=== PATIENT | male | born 1980 | race Caucasian/White ===

== ENCOUNTER 2016-12-27 18:19 | Emergency (ER) | payer OTHER ==
[2016-12-27 18:32] VITALS: BP 128/79
[2016-12-27] MEDS ORDERED: Sodium Chloride 0.9% 10 ML Syringe FLUSH PRN (19:47)
[2016-12-27] MEDS ORDERED: Ondansetron 4 MG/2 ML SDV IVPUSH ONE (19:47)
[2016-12-27] MEDS ORDERED: Lactated Ringers 1,000 ML IV ONE ×2 (19:50→22:09)
--- NOTE | 2016-12-27 20:52 | EDM.PDOC ---
ED HPI GI/ABDOMINAL - General Chief Complaint: Gastrointestinal Problem Stated Complaint: VOMITING Time Seen by Provider: 12/27/16 19:52 Source of Information: Reports: Patient History Limitations: Reports: No limitations - History of Present Illness INITIAL COMMENTS - FREE TEXT/NARRATIVE: Patient presents for evaluation and treatment of abdominal discomfort and vomiting. Patient reports that his symptoms began yesterday around noon. He reports that the abdominal discomfort is in the epigastric and right upper quadrant. He states that it comes and goes. States he is having difficulty eating or drinking anything as it comes right back up. He is unsure how many episodes of vomiting he has had. He also reports associated symptoms of nausea and weakness. He denies any fevers, chills, diarrhea, melena, hematochezia or any constipation. He reports that his last bowel movement was today. He has not taken any medications prior to arrival in the ER. Patient denies any recent travel. Past surgical history includes an appendectomy. He states that he had an ultrasound and a HIDA scan about 2 years ago and is gallbladder looked okay at that time. Location: [facility] - Related Data Allergies/ADRs: Allergies Allergy/AdvReac Type Severity Reaction Status Date / Time No Known Allergies Allergy Verified 12/27/16 18:27 Home Meds: Home Meds . [No Known Home Meds] 12/27/16 [History] Past Medical History - Past Health History Medical/Surgical History: Denies Medical/Surgical History Other Respiratory History: HX OF RIGHT LUNG PLEURACY Other Musculoskeletal History: BILATERAL CARPAL TUNNEL SYNDROME Other Neuro History: HERNIATED DISC, NO SURGERY - Past Surgical History Other HEENT Surgeries/Procedures: WISDOM TEETH REMOVED Other Musculoskeletal Surgeries/Procedures:: LEFT CTR SURGERY Social & Family History - Tobacco Use Smoking Status *Q: Never Smoker Second Hand Smoke Exposure: No - Alcohol Use Days Per Week of Alcohol Use: 0 Number of Drinks Per Day: 0 Total Drinks Per Week: 0 - Recreational Drug Use Recreational Drug Use: No Drug Use in Last 12 Months: No ED ROS GENERAL - Review of Systems Review Of Systems: See Below Constitutional: Reports: weakness, decreased appetite. Denies: fever, chills GI/Abdominal: Reports: Abdominal pain (epigastric and RUQ), Nausea, Vomiting. Denies: Bloody stool, Diarrhea, Hematochezia, Melena : Reports: no symptoms ED EXAM, GI/ABD - Physical Exam Exam: See Below Exam Limited By: No limitations General Appearance: alert, WD/WN, no apparent distress Throat/Mouth: Normal inspection, Normal lips, Normal teeth, Normal oropharynx, Normal voice, No airway compromise Neck: normal inspection. No: lymphadenopathy (L), lymphadenopathy (R) Respiratory/Chest: no respiratory distress, lungs clear, normal breath sounds Cardiovascular: normal peripheral pulses, regular rate, rhythm GI/Abdominal: hypoactive bowel sounds, tenderness (epigastric and RUQ). No: guarding, rebound, McBurney's sign, Randall's sign Neurological: alert, oriented, normal cognition Psychiatric: normal affect, normal mood Skin Exam: Warm, Dry Course - Vital Signs Last Recorded V/S: Last Vital Signs Temp 36.3 C 12/27/16 18:27 Pulse 67 12/27/16 18:27 Resp 18 12/27/16 18:27 BP 128/79 12/27/16 18:27 Pulse Ox 97 12/27/16 18:27 Orthostatic Blood Pressure [ 118/85 Standing] - Orders/Labs/Meds Labs: Laboratory Tests 12/27/16 12/27/16 Range/Units 20:10 20:10 WBC 13.78 H (4.23-9.07) K/mm3 RBC 5.68 (4.63-6.08) M/mm3 Hgb 17.0 (13.7-17.5) gm/L Hct 48.1 (40.1-51.0) % MCV 84.7 (79.0-92.2) fl MCH 29.9 (25.7-32.2) pg MCHC 35.3 (32.2-35.5) g/dl RDW Std Deviation 40.3 (35.1-43.9) fL Plt Count 333 (163-337) K/mm3 MPV 9.9 (9.4-12.3) fl Neut % (Auto) 78.5 H (34.0-67.9) % Lymph % (Auto) 10.9 L (21.8-53.1) % [place] % (Auto) 10.3 (5.3-12.2) % Eos % (Auto) 0.1 L (0.8-7.0) Baso % (Auto) 0.2 (0.1-1.2) % Neut # 10.82 H (1.78-5.38) K/mm3 Lymph # 1.50 (1.32-3.57) K/mm3 [place] # 1.42 H (0.30-0.82) K/mm3 Eos # 0.01 L (0.04-0.54) K/mm3 Baso # 0.03 (0.01-0.08) K/mm3 Sodium 140 (136-145) mEq/L Potassium 3.3 L (3.5-5.1) mEq/L Chloride 99 (98-107) mEq/L Carbon Dioxide 30 (21-32) mEq/L Anion Gap 14.3 (5-15) BUN 20 H (7-18) mg/dL Creatinine 1.0 (0.7-1.3) mg/dL Est Cr Clr Drug Dosing 90.54 mL/min Estimated GFR (MDRD) > 60 (>60) mL/min BUN/Creatinine Ratio 20.0 H (14-18) Glucose 115 H (74-106) mg/dL Calcium 9.6 (8.5-10.1) mg/dL Total Bilirubin 1.2 H (0.2-1.0) mg/dL AST 22 (15-37) U/L ALT 34 (16-63) U/L Alkaline Phosphatase 80 (46-116) U/L C-Reactive Protein 1.7 H* (<1.0) mg/dL Total Protein 8.4 H (6.4-8.2) g/dl Albumin 4.5 (3.4-5.0) g/dl Globulin 3.9 gm/dL Albumin/Globulin Ratio 1.2 (1-2) Lipase 186 (73-393) U/L Meds: Medications Discontinued Medications Generic Name Dose Route Start Last Admin Trade Name Freq PRN Reason Stop Dose Admin Lactated Ringer's 1,000 mls @ 999 mls/hr 12/27/16 19:50 12/27/16 20:12 Ringers, Lactated IV 12/27/16 20:50 999 mls/hr .BOLUS ONE Administration Lactated Ringer's 1,000 mls @ 999 mls/hr 12/27/16 22:09 Ringers, Lactated IV 12/27/16 23:09 .BOLUS ONE Ketorolac Tromethamine 30 mg 12/27/16 21:02 12/27/16 21:20 Toradol IVPUSH 12/27/16 21:03 30 mg ONETIME ONE Administration Ondansetron HCl 4 mg 12/27/16 19:47 12/27/16 20:12 Zofran IVPUSH 12/27/16 19:48 4 mg ONETIME ONE Administration Potassium Bicarbonate 10 meq 12/27/16 21:05 12/27/16 21:29 Effer-K PO 12/27/16 21:06 10 meq ONETIME ONE Administration Sodium Chloride 10 ml 12/27/16 19:47 12/27/16 20:14 Saline Flush FLUSH 10 ml ASDIRECTED PRN Administration Keep Vein Open - Radiology Interpretation Free Text/Narrative:: flat and upright of the abdomen xray shows no air-fluid lines, normal gas pattern - Re-Assessments/Exams Free Text/Narrative Re-Assessment/Exam: 12/27/16 22:19 Labs returned. WBC is 13.7, hgb is 17 and plts are 333 sodium is 140, potassiumi s 3.3 and chloride is 99. Anion gap is 14.0 and AST is 22, ALT is 34 and alk phos is 80. T. bili is 1.2 CRP is 1.7 lipase is 186 I reviewed the labs and imaging with the patient. He has received 1 liter LR bolus, 4mgzofran , toradol and potassium. He feels greatly improved at this time. He declined a second fluid bolus. Will discharge home at this time. Discharge instructions as documented. Departure - Departure Time of Disposition: 22:24 Disposition: Home, Self-Care 01 Condition: good Clinical Impression: Gastroenteritis Instructions: Viral Gastroenteritis, Adult, [id number] Referrals: Rosalva Samuel DO [Primary Care Provider] - Forms: ED Department Discharge Additional Instructions: Prescription for Zofran one tab sublingual every 6-8 hours as needed for nausea. Rx zofran 4mg sublingual #10 tabs 1 tab PO every 6-8 hours prn nausea Clear Liquids tonight and tomorrow morning he may advance to a bland diet tomorrow afternoon. Expect to feel ill for the next one to 2 days. If symptoms persist beyond 3 days follow-up with primary care provider. Please Return to the ER should your symptoms change or worsen.
[2016-12-27] MEDS ORDERED: Ketorolac 30 MG/ML SDV IVPUSH ONE (21:02)
[2016-12-27] MEDS ORDERED: Potassium Bicarbonate/Cit Ac 10 MEQ Effervescent Tab PO ONE (21:05)
--- NOTE | 2016-12-28 08:18 | CR ---
Abdomen: Supine and upright views of the abdomen were obtained. Comparison: Previous abdominal x-ray of 06/14/14. Bowel gas pattern appears normal. No abnormal calcifications or soft tissue abnormality is seen. Minimal scoliosis is noted within the spine. No free air is seen. Impression: 1. Unremarkable two-view abdominal x-ray. Diagnostic code #1
== END 2016-12-27 22:40 | disposition home or self-care (01) ==
LOC: JD.ED 18:19
DX: K52.9 Noninfective gastroenteritis and colitis, unspecified (principal)
CPT/HCPCS: 36415; 74020; 80053; 83690; 85025; 86140; 96361; 96374; 96375; 99284; A9270; J1885; J2405; J7050; J7120

== ENCOUNTER → 2017-03-24 | Day surgery (SDC) | payer OTHER ==
[~2017-03-24] MED LIST: Dexamethasone 4 MG/ML SDV ONE; EPINEPHrine 1:1000 1 MG/ML 30 ML MDV ONE; HYDROmorphone 0.5 MG/0.5 ML Syringe IVPUSH PRN; HYDROmorphone 1 MG/ML Syringe ONE; Ketorolac 30 MG/ML SDV ONE; Lactated Ringers 1,000 ML IV SCH; Lactated Ringers 1,000 ML ONE; Lidocaine 1% 4 ML ONE; Lidocaine 1%/Sod Bicarbonate in NS 8.4% 1 ML Syringe IV PRN; Midazolam 1 MG/ML 2 ML SDV ONE; Ondansetron 4 MG/2 ML SDV IVPUSH PRN; Ondansetron 4 MG/2 ML SDV ONE; Phenylephrine/Normal Saline 100 MCG/ML 10 ML Syringe ONE; Propofol 200 MG/20 ML SDV ONE; Rocuronium 50 MG/5 ML Vial ONE; Sodium Chloride 0.9% 10 ML Syringe FLUSH PRN; ceFAZolin 1 GM Vial ONE; ePHEDrine/Normal Saline 25 MG/5 ML Syringe ONE; fentaNYL 100 MCG/2 ML SDV IVPUSH PRN; fentaNYL 250 MCG/5 ML SDV ONE
--- NOTE | 2017-03-24 07:26 | PCM.PREANE ---
Preanesthetic Assessment - Anesthesia/Transfusion/Family Hx Anesthesia History: Prior Anesthesia Without Reaction Family History of Anesthesia Reaction: No Transfusion History: No Prior Transfusion(s) Intubation History: Unknown - Review of Systems Pulmonary: No Symptoms (History of sleep apnea) Gastrointestinal: No symptoms (history of scrotal pain), Constipation - Physical Assessment NPO Status Date: 03/23/17 Height: 1.65 m Weight: 90.718 kg Mental Status: Alert & Oriented x3 - Lab Values: Laboratory Last Values MRSA (PCR) Negative 03/22/17 10:26 12/27/16 Labs: ej=559 k=3.3 (3.5-5.1) cl=99 co2=30 bun=20(7-18) cr=1.0 - Allergies Allergies/Adverse Reactions: Allergies Allergy/AdvReac Type Severity Reaction Status Date / Time No Known Allergies Allergy Verified 03/23/17 15:29 - Anesthesia Plan Pre-Op Medication Ordered: None - Acknowledgements Anesthesia Type Planned: General Anesthesia Pt an Appropriate Candidate for the Planned Anesthesia: Yes Alternatives and Risks of Anesthesia Discussed w Pt/Guardian: Yes Pt/Guardian Understands and Agrees with Anesthesia Plan: Yes PreAnesthesia Questionnaire - Past Health History Medical/Surgical History: Denies Medical/Surgical History HEENT History: Reports: None Cardiovascular History: Reports: None Respiratory History: Reports: Sleep Apnea Other Respiratory History: HX OF RIGHT LUNG PLEURACY Gastrointestinal History: Reports: Chronic Constipation, Other (See Below) Other Gastrointestinal History: Left and Right hernia repair, abdominal pain Genitourinary History: Reports: Other (See Below) Other Genitourinary History: scrotal pain, pelvic floor weakness, vericocele repair 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 Musculoskeletal History: Reports: Other (See Below) Other Musculoskeletal History: L elbow dislocatino, right and left carpal tunnel release, knee pain, low back pain Neurological History: Reports: None Other Neuro History: HERNIATED DISC, NO SURGERY Psychiatric History: Reports: None Endocrine/Metabolic History: Reports: None Hematologic History: Reports: None Immunologic History: Reports: None Oncologic (Cancer) History: Reports: None Dermatologic History: Reports: None - Past Surgical History Head Surgeries/Procedures: Reports: None GI Surgical History: Reports: Appendectomy, Hernia Repair/Other Male Surgical History: Reports: Varicocele Resection, Vasectomy Endocrine Surgical History: Reports: None Neurological Surgical History: Reports: None Oncologic Surgical History: Reports: None Dermatological Surgical History: Reports: None - SUBSTANCE USE Smoking Status *Q: Never Smoker Second Hand Smoke Exposure: No Days Per Week of Alcohol Use: 0 Number of Drinks Per Day: 0 Total Drinks Per Week: 0 Recreational Drug Use History: No - HOME MEDS Home Medications: Home Meds . [No Known Home Meds] 12/27/16 [History] - CURRENT (IN HOUSE) MEDS Current Meds: Current Medications Discontinued Medications Cefazolin Sodium (Ancef) Confirm Administered Dose 2 gm .ROUTE .STK-MED ONE Stop: 03/24/17 06:56 Dexamethasone (Dexamethasone) Confirm Administered Dose 12 mg .ROUTE .STK-MED ONE Stop: 03/24/17 06:56 Fentanyl (Sublimaze) Confirm Administered Dose 250 mcg .ROUTE .STK-MED ONE Stop: 03/24/17 06:57 Hydromorphone HCl (Dilaudid) Confirm Administered Dose 1 mg .ROUTE .STK-MED ONE Stop: 03/24/17 06:56 Lactated Ringer's (Ringers, Lactated) 1,000 mls @ 125 mls/hr IV ASDIRECTED RADHIKA Lidocaine HCl (Xylocaine-Mpf 1%) Confirm Administered Dose 4 mls @ as directed .ROUTE .STK-MED ONE Stop: 03/24/17 06:56 Lactated Ringer's (Ringers, Lactated) Confirm Administered Dose 1,000 mls @ as directed .ROUTE .STK-MED ONE Stop: 03/24/17 06:56 Lidocaine/Sodium Bicarbonate (Buffered Lidocaine 1% In Ns 8.4%) 0.25 ml IV ONETIME PRN PRN Reason: Prior to IV Start Midazolam HCl (Versed 1 Mg/Ml) Confirm Administered Dose 2 mg .ROUTE .STK-MED ONE Stop: 03/24/17 06:56 Ondansetron HCl (Zofran) Confirm Administered Dose 4 mg .ROUTE .STK-MED ONE Stop: 03/24/17 06:56 Propofol (Diprivan 20 Ml) Confirm Administered Dose 400 mg .ROUTE .STK-MED ONE Stop: 03/24/17 06:56 Rocuronium [place] (Zemuron) Confirm Administered Dose 50 mg .ROUTE .STK-MED ONE Stop: 03/24/17 06:56 Sodium Chloride (Saline Flush) 10 ml FLUSH ASDIRECTED PRN PRN Reason: Keep Vein Open
--- NOTE | 2017-03-24 08:44 | PCM.PREANE ---
Preanesthetic Assessment - Procedure Proposed Procedure: Left KVA - Anesthesia/Transfusion/Family Hx Anesthesia History: Prior Anesthesia Without Reaction Family History of Anesthesia Reaction: No Transfusion History: No Prior Transfusion(s) Intubation History: Unknown - Review of Systems General: No Symptoms Pulmonary: Other (ROMEO with cpap) Cardiovascular: No Symptoms Gastrointestinal: No symptoms Neurological: No Symptoms Other: Reports: Depression (not medicated ) - Physical Assessment NPO Status Date: 03/23/17 NPO Status Time: 22:00 Pulse: 65 O2 Sat by Pulse Oximetry: 96 Respiratory Rate: 16 Blood Pressure: 116/72 Temperature: 36.1 C Height: 1.65 m Weight: 90.718 kg ASA Class: 2 Mental Status: Alert & Oriented x3 Airway Class: Mallampati = 1 Dentition: Reports: Normal Dentition Thyro-Mental Finger Breadths: 3 Mouth Opening Finger Breadths: 3 ROM/Head Extension: Full Lungs: Clear to auscultation, Normal respiratory effort Cardiovascular: Regular Rate, Regular Rhythm - Lab Values: Laboratory Last Values MRSA (PCR) Negative 03/22/17 10:26 - Allergies Allergies/Adverse Reactions: Allergies Allergy/AdvReac Type Severity Reaction Status Date / Time No Known Allergies Allergy Verified 03/23/17 15:29 - Blood Blood Available: No Product(s) Available: None - Anesthesia Plan Pre-Op Medication Ordered: None - Acknowledgements Anesthesia Type Planned: General Anesthesia (LMA) Pt an Appropriate Candidate for the Planned Anesthesia: Yes Alternatives and Risks of Anesthesia Discussed w Pt/Guardian: Yes Pt/Guardian Understands and Agrees with Anesthesia Plan: Yes PreAnesthesia Questionnaire - Past Health History Medical/Surgical History: Denies Medical/Surgical History HEENT History: Reports: None Cardiovascular History: Reports: None Respiratory History: Reports: Sleep Apnea Other Respiratory History: HX OF RIGHT LUNG PLEURACY Gastrointestinal History: Reports: Chronic Constipation, Other (See Below) Other Gastrointestinal History: Left and Right hernia repair, abdominal pain Genitourinary History: Reports: Other (See Below) Other Genitourinary History: scrotal pain, pelvic floor weakness, vericocele repair [employer] History: Reports: None Musculoskeletal History: Reports: Other (See Below) Other Musculoskeletal History: L elbow dislocatino, right and left carpal tunnel release, knee pain, low back pain Neurological History: Reports: None Other Neuro History: HERNIATED DISC, NO SURGERY Psychiatric History: Reports: None Endocrine/Metabolic History: Reports: None Hematologic History: Reports: None Immunologic History: Reports: None Oncologic (Cancer) History: Reports: None Dermatologic History: Reports: None - Past Surgical History Head Surgeries/Procedures: Reports: None GI Surgical History: Reports: Appendectomy, Hernia Repair/Other Male Surgical History: Reports: Varicocele Resection, Vasectomy Endocrine Surgical History: Reports: None Neurological Surgical History: Reports: None Oncologic Surgical History: Reports: None Dermatological Surgical History: Reports: None - SUBSTANCE USE Smoking Status *Q: Never Smoker Second Hand Smoke Exposure: No Days Per Week of Alcohol Use: 0 Number of Drinks Per Day: 0 Total Drinks Per Week: 0 Recreational Drug Use History: No - HOME MEDS Home Medications: Home Meds . [No Known Home Meds] 12/27/16 [History] - CURRENT (IN HOUSE) MEDS Current Meds: Current Medications Lactated Ringer's (Ringers, Lactated) 1,000 mls @ 125 mls/hr IV ASDIRECTED RADHIKA Lidocaine/Sodium Bicarbonate (Buffered Lidocaine 1% In Ns 8.4%) 0.25 ml IV ONETIME PRN PRN Reason: Prior to IV Start Sodium Chloride (Saline Flush) 10 ml FLUSH ASDIRECTED PRN PRN Reason: Keep Vein Open Discontinued Medications Cefazolin Sodium (Ancef) Confirm Administered Dose 2 gm .ROUTE .STK-MED ONE Stop: 03/24/17 06:56 Dexamethasone (Dexamethasone) Confirm Administered Dose 12 mg .ROUTE .STK-MED ONE Stop: 03/24/17 06:56 Fentanyl (Sublimaze) Confirm Administered Dose 250 mcg .ROUTE .STK-MED ONE Stop: 03/24/17 06:57 Hydromorphone HCl (Dilaudid) Confirm Administered Dose 1 mg .ROUTE .STK-MED ONE Stop: 03/24/17 06:56 Lidocaine HCl (Xylocaine-Mpf 1%) Confirm Administered Dose 4 mls @ as directed .ROUTE .STK-MED ONE Stop: 03/24/17 06:56 Lactated Ringer's (Ringers, Lactated) Confirm Administered Dose 1,000 mls @ as directed .ROUTE .STK-MED ONE Stop: 03/24/17 06:56 Midazolam HCl (Versed 1 Mg/Ml) Confirm Administered Dose 2 mg .ROUTE .STK-MED ONE Stop: 03/24/17 06:56 Ondansetron HCl (Zofran) Confirm Administered Dose 4 mg .ROUTE .STK-MED ONE Stop: 03/24/17 06:56 Propofol (Diprivan 20 Ml) Confirm Administered Dose 400 mg .ROUTE .STK-MED ONE Stop: 03/24/17 06:56 Rocuronium [place] (Zemuron) Confirm Administered Dose 50 mg .ROUTE .STK-MED ONE Stop: 03/24/17 06:56
[2017-03-24] MEDS: Bupivacaine 0.25% 30 ML SDV ONE ×2 (10:31→10:40)
--- NOTE | 2017-03-24 10:51 | PCM.POSTAN ---
POST ANESTHESIA ASSESSMENT - MENTAL STATUS Mental Status: alert, oriented - VITAL SIGNS Pulse Rate: 87 SaO2: 98 Resp Rate: 12 Blood Pressure: 110/68 Temperature: 36.9 C - RESPIRATORY Respiratory Status: respiratory rate WNL, airway patent, O2 saturation stable - CARDIOVASCULAR CV Status: pulse rate WNL, blood pressure stable - GASTROINTESTINAL GI Status: no symptoms - PAIN Pain Score: 0 - POST OP HYDRATION Hydration Status: adequate & stable
--- NOTE | 2017-03-24 11:45 | PCM48HPAN ---
Post Anesthesia Note - EVALUATION WITHIN 48HRS OF ANESTHETIC Vital Signs in Normal Range: Yes Patient Participated in Evaluation: Yes Respiratory Function Stable: Yes Airway Patent: Yes Cardiovascular Function Stable: Yes Hydration Status Stable: Yes Pain Control Satisfactory: Yes Nausea and Vomiting Control Satisfactory: Yes Mental Status Recovered: Yes
[2017-03-24 13:46] VITALS: BP 121/59
--- NOTE | 2017-03-28 14:42 | PCM.OPNOTE ---
- General Post-Op/Procedure Note Date of Surgery/Procedure: 03/24/17 Operative Procedure(s): left knee artrhoscopy with plica/fat pad resection Pre Op Diagnosis: left knee pain Post-Op Diagnosis: same with fat pad impingment and plica Anesthesia Technique: General LMA, Local Primary Surgeon: Alejo Huerta Anesthesia Provider: Sophia Dumas Physics Professor: Cesilia Kelly Physics Professor: Jose Elias Tracey EBL in mLs: 5 Complications: None Condition: Good
--- NOTE | 2017-03-28 15:42 | OR ---
DATE OF OPERATION: 03/24/2017 SURGEON: Alejo Huerta MD OPERATION PERFORMED: Left knee arthroscopy with plica and fat pad resection. PREOPERATIVE DIAGNOSIS: Left knee pain. POSTOPERATIVE DIAGNOSIS: Left knee pain with fat pad impingement plica. ANESTHESIA: General LMA with local. ANESTHESIA PROVIDER: Sophia Dumas CRNA. PAIN MANAGEMENT NURSE: Cesilia Kelly PA-C and Jose Elias Tracey MD. ESTIMATED BLOOD LOSS: 5 mL. COMPLICATIONS: None. CONDITION: Stable. DESCRIPTION OF PROCEDURE: The patient was identified in the preop holding area. Proper site was marked and identified by the surgeon. The patient was taken back to the operating theater where after adequate anesthesia, the right lower extremity was placed in a well leg espinal. The left lower extremity had a nonsterile tourniquet applied and was then placed in a C-clamp espinal. The left lower extremity was then sterilely prepped and draped in the usual sterile fashion. OR time-out was performed. The patient received 2 g of IV Ancef. At this time, the left lower extremity was exsanguinated. Tourniquet was insufflated to 250 mmHg. Standard anterior lateral portal incision was made. The scope trocar was introduced. The patellofemoral joint showed no signs of chondromalacia. There was noted to be significant overgrowth of the fat pad, which also thickened into a medial plica. There was no trochlear chondromalacia noted. No loose or foreign bodies in the medial and lateral gutter. Attention was turned to the medial compartment. Anteromedial portal was created with the use of a spinal needle. The medial meniscus showed no signs of tear. There were no chondromalacia noted to the medial compartment. ACL was intact in the notch. Lateral compartment showed no meniscus tear and no chondromalacia at this time. Resection of the fat pad was taken back to a normal level at this time as well as resection of the medial plica. Excess saline was drained from the knee at this time. A 3-0 nylon simple suture was used for closure of the skin. The patient had a sterile soft dressing applied. He was returned to the PACU in stable condition. MMODAL /[id number]
== END | disposition home or self-care (01) ==
LOC: EDSTATUS 03-22 08:45 → JD.SDS 03-22 10:19 → JD.LAB 03-22 10:19 → JD.SDS 08:17 → EDSTATUS 08:45
PROVIDERS: ATTEND Orthopaedic Surgery
PROC: 0SBD4ZZ Excision of Left Knee Joint, Percutaneous Endoscopic Approach (ICD-10-PCS; principal; 2017-03-24)
DX: M79.4 Hypertrophy of (infrapatellar) fat pad (principal); M67.52 Plica syndrome, left knee; G47.33 Obstructive sleep apnea (adult) (pediatric); K59.09 Other constipation; Z99.89 Dependence on other enabling machines and devices; Z98.52 Vasectomy status; Z90.49 Acquired absence of other specified parts of digestive tract; Z98.890 Other specified postprocedural states; Z79.899 Other long term (current) drug therapy
CPT/HCPCS: 29875; 87641; J0171; J0690; J1100; J1170; J1885; J2250; J2405; J3010; J7050; J7120; 01400; J2704; J3490

== ENCOUNTER 2017-04-06 08:18 | Day surgery (SDC) | payer OTHER ==
[~2017-04-06 08:18] MED LIST changes: -Dexamethasone 4 MG/ML SDV ONE; -EPINEPHrine 1:1000 1 MG/ML 30 ML MDV ONE; -HYDROmorphone 0.5 MG/0.5 ML Syringe IVPUSH PRN; -HYDROmorphone 1 MG/ML Syringe ONE; -Ketorolac 30 MG/ML SDV ONE; -Lactated Ringers 1,000 ML ONE; -Lidocaine 1% 4 ML ONE; -Lidocaine 1%/Sod Bicarbonate in NS 8.4% 1 ML Syringe IV PRN; +Lidocaine 1%/Sod Bicarbonate in NS 8.4% 1 ML Syringe PRN; -Midazolam 1 MG/ML 2 ML SDV ONE; -Ondansetron 4 MG/2 ML SDV IVPUSH PRN; -Ondansetron 4 MG/2 ML SDV ONE; -Phenylephrine/Normal Saline 100 MCG/ML 10 ML Syringe ONE; -Rocuronium 50 MG/5 ML Vial ONE; -ceFAZolin 1 GM Vial ONE; -ePHEDrine/Normal Saline 25 MG/5 ML Syringe ONE; -fentaNYL 100 MCG/2 ML SDV IVPUSH PRN; -fentaNYL 250 MCG/5 ML SDV ONE
--- NOTE | 2017-04-06 08:52 | PCM.PREANE ---
Preanesthetic Assessment - Anesthesia/Transfusion/Family Hx Anesthesia History: Prior Anesthesia Without Reaction Family History of Anesthesia Reaction: No Transfusion History: No Prior Transfusion(s) Intubation History: Unknown - Review of Systems General: No Symptoms Pulmonary: No Symptoms Cardiovascular: No Symptoms Gastrointestinal: Abdominal pain (right side intermittent) Neurological: No Symptoms Other: Reports: None - Physical Assessment NPO Status Date: 04/05/17 NPO Status Time: 19:00 Pulse: 95 O2 Sat by Pulse Oximetry: 98 Respiratory Rate: 16 Blood Pressure: 107/74 Temperature: 98.1 F Height: 5 ft 4.96 in Weight: 90.718 kg ASA Class: 2 Mental Status: Alert & Oriented x3 Airway Class: Mallampati = 1 Dentition: Reports: Normal Dentition Thyro-Mental Finger Breadths: 3 Mouth Opening Finger Breadths: 3 ROM/Head Extension: Full Lungs: Clear to auscultation, Normal respiratory effort Cardiovascular: Regular Rate, Regular Rhythm - Allergies Allergies/Adverse Reactions: Allergies Allergy/AdvReac Type Severity Reaction Status Date / Time No Known Allergies Allergy Verified 04/05/17 15:13 - Blood Blood Available: No - Acknowledgements Anesthesia Type Planned: MAC Pt an Appropriate Candidate for the Planned Anesthesia: Yes Alternatives and Risks of Anesthesia Discussed w Pt/Guardian: Yes Pt/Guardian Understands and Agrees with Anesthesia Plan: Yes PreAnesthesia Questionnaire - Past Health History Medical/Surgical History: Denies Medical/Surgical History HEENT History: Reports: None Cardiovascular History: Reports: None Respiratory History: Reports: Sleep Apnea (uses cpap) Other Respiratory History: HX OF RIGHT LUNG PLEURACY Gastrointestinal History: Reports: Chronic Constipation, Hemorrhoids, Other ( See Below) Other Gastrointestinal History: Left and Right hernia repair, abdominal pain Genitourinary History: Reports: Other (See Below) Other Genitourinary History: scrotal pain, pelvic floor weakness, vericocele repair 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 Musculoskeletal History: Reports: Other (See Below) Other Musculoskeletal History: L elbow dislocation, right and left carpal tunnel release, knee pain, low back pain, bilateral patellar malalignment syndrome Neurological History: Reports: None Other Neuro History: HERNIATED DISC, NO SURGERY Psychiatric History: Reports: None Endocrine/Metabolic History: Reports: None Hematologic History: Reports: None Immunologic History: Reports: None Oncologic (Cancer) History: Reports: None Dermatologic History: Reports: None - Past Surgical History Head Surgeries/Procedures: Reports: None HEENT Surgical History: Reports: Oral Surgery Other HEENT Surgeries/Procedures: WISDOM TEETH REMOVED GI Surgical History: Reports: Appendectomy, Hernia Repair/Other Male Surgical History: Reports: Varicocele Resection, Vasectomy Endocrine Surgical History: Reports: None Neurological Surgical History: Reports: None Musculoskeletal Surgical History: Reports: Arthroscopic Knee Other Musculoskeletal Surgeries/Procedures:: LEFT CTR SURGERY Oncologic Surgical History: Reports: None Dermatological Surgical History: Reports: None - SUBSTANCE USE Smoking Status *Q: Never Smoker Tobacco Use Within Last Twelve Months: No Second Hand Smoke Exposure: No Days Per Week of Alcohol Use: 0 (once a month) Number of Drinks Per Day: 0 Total Drinks Per Week: 0 Recreational Drug Use History: No - HOME MEDS Home Medications: Home Meds . [No Known Home Meds] 04/05/17 [History] - CURRENT (IN HOUSE) MEDS Current Meds: Current Medications Lactated Ringer's (Ringers, Lactated) 1,000 mls @ 125 mls/hr IV ASDIRECTED RADHIKA Stop: 04/06/17 23:00 Lidocaine/Sodium Bicarbonate (Buffered Lidocaine 1% In Ns 8.4%) 0.25 ml .XX ONETIME PRN PRN Reason: Prior to IV Start Stop: 04/06/17 18:00 Sodium Chloride (Saline Flush) 10 ml FLUSH ASDIRECTED PRN PRN Reason: Keep Vein Open Stop: 04/06/17 18:00 Discontinued Medications Propofol (Diprivan 20 Ml) Confirm Administered Dose 200 mg .ROUTE .STK-MED ONE Stop: 04/06/17 07:29
[2017-04-06] MEDS ORDERED: Midazolam 1 MG/ML 2 ML SDV ONE (10:10)
[2017-04-06] MEDS ORDERED: fentaNYL 100 MCG/2 ML SDV ONE (10:10)
[2017-04-06] MEDS ORDERED: Propofol 200 MG/20 ML SDV ONE (10:49)
--- NOTE | 2017-04-06 10:57 | PCM.OPNOTE ---
- General Post-Op/Procedure Note Date of Surgery/Procedure: 04/06/17 Operative Procedure(s): Colonoscopy with ileal biopsy, right colon biopsy, and rectal biopsy 2 Findings: Normal colonoscopic evaluation, normal terminal ileum, but mild slightly prolapsing internal hemorrhoids Pre Op Diagnosis: History of rectal bleeding with right lower quadrant abdominal pain Post-Op Diagnosis: Internal hemorrhoids Anesthesia Technique: MAC, Moderate sedation Primary Surgeon: Gage Funk Pathology: Rectal biopsy 2, right colon biopsy 2, ileal biopsy 2 EBL in mLs: 0 Complications: None Condition: Good Free Text/Narrative:: After adequate IV sedation and analgesia was obtained with monitoring the patient was placed on his left side. Perianal inspection revealed slightly prolapsed internal hemorrhoids. Digital rectal examination was otherwise unremarkable. A lubricated colonoscope was inserted into the rectum then advanced under direct vision with abdominal pressure to the cecum. The bowel preparation was excellent. The scope was advanced into the terminal for about 10 cm. This area was endoscopically normal. Given his history, random biopsies of the ileum 2 were taken for histologic review. The scope was then withdrawn into the cecum and right colon, which were normal. I took 2 random biopsies of the right colon given that this was the side of his abdominal pain. The transverse descending and sigmoid colons were endoscopically normal with no mass lesions or inflammatory changes seen. Likewise the rectum in both views was unremarkable. I took 2 random biopsies for histopathology. Air was removed as I finished the procedure. Photographs were taken for the patient and for the record.
[2017-04-06 11:02] VITALS: BP 100/62
== END 2017-04-06 11:34 | disposition home or self-care (01) ==
LOC: JD.SDS 08:18
PROVIDERS: ATTEND Surgery
PROC: 0DBE8ZX Excision of Large Intestine, Via Natural or Artificial Opening Endoscopic, Diagnostic (ICD-10-PCS; principal; 2017-04-06)
DX: K64.8 Other hemorrhoids (principal); G47.30 Sleep apnea, unspecified; Z98.52 Vasectomy status; Z90.49 Acquired absence of other specified parts of digestive tract; Z98.890 Other specified postprocedural states
CPT/HCPCS: 45380; 88305; J2250; J3010; J7120; J2704

== ENCOUNTER 2017-06-10 06:40 | Day surgery (SDC) | payer OTHER ==
[2017-06-10] MEDS ORDERED: Lidocaine 1%/Sod Bicarbonate in NS 8.4% 1 ML Syringe PRN (07:25)
[2017-06-10] MEDS ORDERED: Sodium Chloride 0.9% 10 ML Syringe FLUSH PRN (07:25)
[2017-06-10] MEDS ORDERED: Lactated Ringers 1,000 ML IV SCH (07:30)
--- NOTE | 2017-06-10 07:31 | PCM.PREANE ---
Preanesthetic Assessment - Anesthesia/Transfusion/Family Hx Anesthesia History: Prior Anesthesia Without Reaction Family History of Anesthesia Reaction: No - Review of Systems General: No Symptoms Pulmonary: No Symptoms, Other (Sleep Apnea with CPAP ) Cardiovascular: No Symptoms Gastrointestinal: No Symptoms Neurological: No Symptoms Other: Reports: None - Physical Assessment NPO Status Date: 06/09/17 NPO Status Time: 19:00 O2 Sat by Pulse Oximetry: 97 Respiratory Rate: 16 Vital Signs: Last Vital Signs Temp 36.7 C 06/10/17 07:00 Pulse 72 06/10/17 07:00 Resp 16 06/10/17 07:00 BP 115/68 06/10/17 07:00 Pulse Ox 97 06/10/17 07:00 Height: 1.65 m Weight: 90.265 kg ASA Class: 2 Mental Status: Alert & Oriented x3 Airway Class: Mallampati = 1 Dentition: Reports: Normal Dentition Thyro-Mental Finger Breadths: 3 Mouth Opening Finger Breadths: 3 ROM/Head Extension: Full Lungs: Clear to Auscultation, Normal Respiratory Effort Cardiovascular: Regular Rate, Regular Rhythm - Allergies Allergies/Adverse Reactions: Allergies Allergy/AdvReac Type Severity Reaction Status Date / Time No Known Allergies Allergy Verified 06/10/17 07:20 - Acknowledgements Anesthesia Type Planned: MAC Pt an Appropriate Candidate for the Planned Anesthesia: Yes Alternatives and Risks of Anesthesia Discussed w Pt/Guardian: Yes Pt/Guardian Understands and Agrees with Anesthesia Plan: Yes PreAnesthesia Questionnaire - CURRENT (IN HOUSE) MEDS Current Meds: Current Medications Lactated Ringer's (Ringers, Lactated) 1,000 mls @ 125 mls/hr IV ASDIRECTED RADHIKA Lidocaine/Sodium Bicarbonate (Buffered Lidocaine 1% In Ns 8.4%) 0.25 ml IV ONETIME PRN PRN Reason: Prior to IV Start Sodium Chloride (Saline Flush) 10 ml FLUSH ASDIRECTED PRN PRN Reason: Keep Vein Open
[2017-06-10] MEDS ORDERED: Propofol 200 MG/20 ML SDV ONE (08:03)
[2017-06-10] MEDS ORDERED: fentaNYL 100 MCG/2 ML SDV ONE (08:03)
[2017-06-10] MEDS ORDERED: Midazolam 1 MG/ML 2 ML SDV ONE (08:03)
[2017-06-10 08:18] VITALS: BP 86/43
--- NOTE | 2017-06-10 08:23 | PCM.OPNOTE ---
- General Post-Op/Procedure Note Date of Surgery/Procedure: 06/10/17 Operative Procedure(s): 1. Anoscopy. 2. 3 column rubber band ligation of internal hemorrhoids. 3. Rectal biopsy Findings: 3 column internal hemorrhoids Pre Op Diagnosis: 1. Bleeding internal hemorrhoids. 2. Change in bowel habits Post-Op Diagnosis: Same Anesthesia Technique: MAC, Moderate Sedation Primary Surgeon: Gage Funk Pathology: Rectal biopsy EBL in mLs: 0 Complications: None Condition: Good Free Text/Narrative:: After adequate IV sedation and analgesia was obtained with monitoring the patient was placed on his left side. Perianal inspection revealed slight protuberance of his internal hemorrhoids. Anoscopy confirmed the presence of the hemorrhoids. The largest was the left lateral column. The working scope was placed next and I took the rubber band ligator and applied it to the rectal mucosa above the dentate line in each area of the 3 column hemorrhoids. A rectal biopsy using forceps was done next. There was slight red bleeding from the manipulation. There were no complications.
== END 2017-06-10 08:50 | disposition home or self-care (01) ==
LOC: MERGE 06:40 → JD.SDS 06:40
PROVIDERS: ATTEND Surgery
DX: K64.8 Other hemorrhoids (principal); G47.30 Sleep apnea, unspecified; Z90.49 Acquired absence of other specified parts of digestive tract; Z98.890 Other specified postprocedural states; Z98.52 Vasectomy status
CPT/HCPCS: 45100; 46221; 46606; J2250; J3010; J7120; 00902; 88305; J2704

== ENCOUNTER 2017-06-30 07:42 | Day surgery (SDC) | payer OTHER ==
[~2017-06-30 07:42] MED LIST changes: +Lidocaine 1%/Sod Bicarbonate in NS 8.4% 1 ML Syringe IV PRN; -Lidocaine 1%/Sod Bicarbonate in NS 8.4% 1 ML Syringe PRN; -Propofol 200 MG/20 ML SDV ONE
[2017-06-30] MEDS ORDERED: Propofol 200 MG/20 ML SDV ONE ×2 (08:42→09:53)
[2017-06-30] MEDS ORDERED: Dexamethasone 4 MG/ML 5 ML MDV ONE (08:42)
[2017-06-30] MEDS ORDERED: Lidocaine 1% 4 ML ONE (08:42)
[2017-06-30] MEDS ORDERED: Rocuronium 50 MG/5 ML Vial ONE (08:42)
[2017-06-30] MEDS ORDERED: Ondansetron 4 MG/2 ML SDV ONE (08:42)
[2017-06-30] MEDS ORDERED: Midazolam 1 MG/ML 2 ML SDV ONE (08:42)
[2017-06-30] MEDS ORDERED: fentaNYL 250 MCG/5 ML SDV ONE (08:42)
[2017-06-30] MEDS ORDERED: ceFAZolin 1 GM Vial ONE (08:42)
[2017-06-30] MEDS ORDERED: Bupivacaine 0.25% 30 ML SDV ONE (08:57)
[2017-06-30] MEDS ORDERED: EPINEPHrine 1 MG/ML 30 ML MDV ONE (08:57)
--- NOTE | 2017-06-30 09:33 | PCM.PREANE ---
Preanesthetic Assessment - Anesthesia/Transfusion/Family Hx Anesthesia History: Prior Anesthesia Without Reaction Family History of Anesthesia Reaction: No Transfusion History: No Prior Transfusion(s) Intubation History: Unknown - Review of Systems General: No Symptoms Pulmonary: No Symptoms Cardiovascular: No Symptoms Gastrointestinal: No Symptoms Neurological: No Symptoms Other: Reports: None - Physical Assessment NPO Status Date: 06/29/17 NPO Status Time: 20:30 O2 Sat by Pulse Oximetry: 93 Respiratory Rate: 16 Vital Signs: Last Vital Signs Temp 36.9 C 06/30/17 07:50 Pulse 81 06/30/17 07:50 Resp 16 06/30/17 07:50 BP 110/81 06/30/17 07:50 Pulse Ox 93 L 06/30/17 07:50 Height: 1.65 m Weight: 90.265 kg ASA Class: 2 Mental Status: Alert & Oriented x3 Airway Class: Mallampati = 1 Dentition: Reports: Normal Dentition Thyro-Mental Finger Breadths: 3 Mouth Opening Finger Breadths: 3 ROM/Head Extension: Full Lungs: Clear to Auscultation, Normal Respiratory Effort Cardiovascular: Regular Rate, Regular Rhythm - Lab Values: Reviewed. - Allergies Allergies/Adverse Reactions: Allergies Allergy/AdvReac Type Severity Reaction Status Date / Time No Known Allergies Allergy Verified 06/30/17 08:42 - Acknowledgements Anesthesia Type Planned: General Anesthesia Pt an Appropriate Candidate for the Planned Anesthesia: Yes Alternatives and Risks of Anesthesia Discussed w Pt/Guardian: Yes Pt/Guardian Understands and Agrees with Anesthesia Plan: Yes PreAnesthesia Questionnaire - Past Health History Medical/Surgical History: Denies Medical/Surgical History HEENT History: Reports: None Cardiovascular History: Reports: None Respiratory History: Reports: Sleep Apnea Other Respiratory History: HX OF RIGHT LUNG PLEURACY Gastrointestinal History: Reports: Chronic Constipation, Hemorrhoids, Other ( See Below) Other Gastrointestinal History: Left and Right hernia repair, abdominal pain, rectal bleeding, hemorrhoids, inguinal hernia repair Genitourinary History: Reports: Other (See Below) Other Genitourinary History: scrotal pain, pelvic floor weakness, vericocele repair SAFETY AND HEALTH CONSULTANT History: Reports: None Musculoskeletal History: Reports: Other (See Below) Other Musculoskeletal History: L elbow dislocation, right and left carpal tunnel release, knee pain, low back pain, bilateral patellar malalignment syndrome Neurological History: Reports: None Other Neuro History: HERNIATED DISC, NO SURGERY Psychiatric History: Reports: None Endocrine/Metabolic History: Reports: None Hematologic History: Reports: None Immunologic History: Reports: None Oncologic (Cancer) History: Reports: None Dermatologic History: Reports: None - Past Surgical History Head Surgeries/Procedures: Reports: None HEENT Surgical History: Reports: Oral Surgery Other HEENT Surgeries/Procedures: WISDOM TEETH REMOVED Cardiovascular Surgical History: Reports: None Respiratory Surgical History: Reports: None GI Surgical History: Reports: Appendectomy, Colonoscopy, Hernia Repair/Other Male Surgical History: Reports: Vasectomy, Varicocele Resection Endocrine Surgical History: Reports: None Neurological Surgical History: Reports: None Musculoskeletal Surgical History: Reports: Arthroscopic Knee Other Musculoskeletal Surgeries/Procedures:: LEFT CTR SURGERY Oncologic Surgical History: Reports: None Dermatological Surgical History: Reports: None - SUBSTANCE USE Smoking Status *Q: Never Smoker Tobacco Use Within Last Twelve Months: No Second Hand Smoke Exposure: No Days Per Week of Alcohol Use: 0 Number of Drinks Per Day: 0 Total Drinks Per Week: 0 Recreational Drug Use History: No - HOME MEDS Home Medications: Home Meds Aspirin 325 mg PO BID #80 tablet 07/01/17 [Rx] - CURRENT (IN HOUSE) MEDS Current Meds: Current Medications Lactated Ringer's (Ringers, Lactated) 1,000 mls @ 125 mls/hr IV ASDIRECTED [facility] Last Admin: 06/30/17 08:05 Dose: 125 mls/hr Lidocaine/Sodium Bicarbonate (Buffered Lidocaine 1% In Ns 8.4%) 0.25 ml IV ONETIME PRN PRN Reason: Prior to IV Start Last Admin: 06/30/17 08:04 Dose: 0.25 ml Sodium Chloride (Saline Flush) 10 ml FLUSH ASDIRECTED PRN PRN Reason: Keep Vein Open Discontinued Medications Bupivacaine HCl (Marcaine 0.25%) Confirm Administered Dose 30 ml .ROUTE .STK- MED ONE Stop: 06/30/17 08:58 Cefazolin Sodium (Ancef) Confirm Administered Dose 2 gm .ROUTE .STK-MED ONE Stop: 06/30/17 08:43 Dexamethasone (Dexamethasone) Confirm Administered Dose 20 mg .ROUTE .STK-MED ONE Stop: 06/30/17 08:43 Epinephrine HCl (Adrenalin 1:1000) Confirm Administered Dose 30 mg .ROUTE .STK- MED ONE Stop: 06/30/17 08:58 Fentanyl (Sublimaze) Confirm Administered Dose 250 mcg .ROUTE .STK-MED ONE Stop: 06/30/17 08:43 Lidocaine HCl (Xylocaine-Mpf 1%) Confirm Administered Dose 4 mls @ as directed .ROUTE .STK-MED ONE Stop: 06/30/17 08:43 Midazolam HCl (Versed 1 Mg/Ml) Confirm Administered Dose 2 mg .ROUTE .STK-MED ONE Stop: 06/30/17 08:43 Ondansetron HCl (Zofran) Confirm Administered Dose 4 mg .ROUTE .STK-MED ONE Stop: 06/30/17 08:43 Propofol (Diprivan 20 Ml) Confirm Administered Dose 200 mg .ROUTE .STK-MED ONE Stop: 06/30/17 08:43 Rocuronium [place] (Zemuron) Confirm Administered Dose 50 mg .ROUTE .STK-MED ONE Stop: 06/30/17 08:43
[2017-06-30] MEDS ORDERED: Succinylcholine 200 MG/10 ML MDV ONE (09:55)
[2017-06-30] MEDS ORDERED: Ketamine 500 mg/10 ML MDV ONE ×2 (10:15→11:47)
[2017-06-30] MEDS ORDERED: diphenhydrAMINE 50 MG/ML SDV IVPUSH PRN (10:22)
[2017-06-30] MEDS ORDERED: Haloperidol Lactate 5 MG/ML SDV IVPUSH ONE (10:22)
[2017-06-30] MEDS ORDERED: HYDROmorphone 0.5 MG/0.5 ML Syringe IVPUSH PRN (10:22)
[2017-06-30] MEDS ORDERED: fentaNYL 100 MCG/2 ML SDV IVPUSH PRN (10:22)
[2017-06-30] MEDS ORDERED: ePHEDrine 50 MG/ML SDV ONE (10:24)
--- NOTE | 2017-06-30 10:59 | PCM.POSTAN ---
POST ANESTHESIA ASSESSMENT - MENTAL STATUS Mental Status: Alert, Oriented - VITAL SIGNS Pulse Rate: 81 SaO2: 93 Resp Rate: 16 Blood Pressure: 110/81 Temperature: 36.9 C - RESPIRATORY Respiratory Status: Respiratory Rate WNL, Airway Patent, O2 Saturation Stable - CARDIOVASCULAR CV Status: Pulse Rate WNL, Blood Pressure Stable - GASTROINTESTINAL GI Status: No Symptoms - PAIN Pain Score: 6 (Treated) - POST OP HYDRATION Hydration Status: Adequate & Stable
[2017-06-30] MEDS ORDERED: Lactated Ringers 1,000 ML ONE (11:45)
[2017-06-30 14:09] VITALS: BP 114/69
--- NOTE | 2017-07-04 21:45 | PCM.OPNOTE ---
- General Post-Op/Procedure Note Date of Surgery/Procedure: 06/30/17 Operative Procedure(s): right knee video arthroscopy with debridement of fat pad and chondroplasty of the trochlea Pre Op Diagnosis: right knee pain Post-Op Diagnosis: Same Anesthesia Technique: General LMA, Local Primary Surgeon: Alejo Huerta Anesthesia Provider: Dayan Love Storekeeper Engineering: Barrera Harvey EBL in mLs: 5 Complications: None Condition: Good
--- NOTE | 2017-07-04 22:25 | OR ---
DATE OF OPERATION: 06/30/2017 SURGEON: Alejo Huerta MD OPERATION PERFORMED: Right knee video arthroscopy with debridement of the fat pad and chondroplasty of the trochlea. PREOPERATIVE DIAGNOSIS: Right knee pain with patellofemoral syndrome. POSTOPERATIVE DIAGNOSIS: Right knee pain with patellofemoral syndrome. ANESTHESIA: Technique, general LMA with local. ANESTHESIA PROVIDER: Krista Goldberg CRNA. GRAPHICS EDIT TECHNICIAN: Barrera Harvey MD. ESTIMATED BLOOD LOSS: 5 mL. COMPLICATIONS: None. CONDITION: Stable. DESCRIPTION OF PROCEDURE: The patient was identified in the preoperative holding area. Proper site was marked and identified by the surgeon. The patient was taken back to the operating theater where after adequate anesthesia, the patient's right lower extremity had a nonsterile tourniquet applied and then was placed on a C-clamp espinal. The left lower extremity was placed in a well leg espinal. Right lower extremity was then sterilely prepped and draped in the usual sterile fashion. OR time-out was performed. The patient received 2 g of IV Ancef. The right lower extremity was exsanguinated. Tourniquet was insufflated to 250 mmHg. Standard anterior lateral portal incision was made at the inferior pole patella. Scope trocar was introduced. There was noted to be a minor amount of chondromalacia noted to the trochlea and the fat pad was noted to have significant overgrowth and was in patellofemoral joint. There was no insignificant plica noted medially, there were adhesions in the suprapatellar pouch. Attention was turned to the medial compartment. With the use of a spinal needle, anterior medial portal was created. The medial compartment was probed. There was no chondromalacia noted and no meniscus tear noted. ACL was noted to be intact in the notch. Lateral compartment showed no signs of chondromalacia or meniscus tear. Attention was turned back to the trochlea. Chondroplasty at the trochlea was then done, thereafter a smooth border. Part of the fat pad was then also resected, so that would not pinch in the patellofemoral joint. The suprapatellar adhesion was also removed at this time. There was no further pathology noted. At this time, excess saline was drained from the knee. 3-0 nylon simple suture was used for closure of the skin. The patient was placed in a sterile soft dressing and was sent to PACU in stable condition. MMLUIS ANTONIO /[id number]
== END 2017-06-30 13:50 | disposition home or self-care (01) ==
LOC: JD.SDS 07:42
PROVIDERS: ATTEND Orthopaedic Surgery
DX: M94.261 Chondromalacia, right knee (principal); M79.4 Hypertrophy of (infrapatellar) fat pad; M25.861 Other specified joint disorders, right knee; G47.30 Sleep apnea, unspecified; Z98.52 Vasectomy status; Z90.49 Acquired absence of other specified parts of digestive tract; Z98.890 Other specified postprocedural states
CPT/HCPCS: 29877; J0171; J0690; J1100; J2250; J2405; J3010; J3490; J7120; 01400; J0330; J2704